=== PATIENT | female | born 2000 | race Caucasian/White ===

== ENCOUNTER → 2021-11-30 14:41 | Outpatient (BNVA) | payer OTHER, SELFPAY | PROVIDERS: Visit Provider Advanced Practice Midwife | DX: Z30.09 Encounter for other general counseling and advice on contraception (principal); Z30.011 Encounter for initial prescription of contraceptive pills | CPT/HCPCS: 99202 ==

== ENCOUNTER 2021-11-30 15:59 | Outpatient (REF) | payer OTHER, SELFPAY ==
[2021-11-30 16:12] LABS: MANUAL DIFF FLAG NO
[2021-11-30 16:25] LABS: Basophils Absolute Auto 0.1 X10*3/uL (0.0-0.2); Basophils Percent Auto 0.8 % (0-2); Eosinophils Absolute Auto 0.1 X10*3/uL (0.0-0.4); Hematocrit 40.5 % (37.0-47.0); Hemoglobin 13.5 g/dl (12.0-16.0); Imm Gran Abs Auto 0.03 X10*3/uL (0.00-0.03); Imm Gran Pct Auto 0.3 % (0.0-0.4); Lymphocytes Absolute Auto 3.1 X10*3/uL (1.2-4.9); Mean Corpuscular HGB Conc 33.3 g/dl (31.0-35.0); Mean Corpuscular Hemoglobin 30.4 pg (27.0-33.0); Mean Corpuscular Volume 91.2 fL (80.0-98.0); Mean Platelet Volume 9.2 fL (9.4-12.3); Monocytes Absolute Auto 0.9 X10*3/uL (0.1-1.2); Neutrophils Absolute Auto 6.5 x10*3/uL (2.0-8.3); Neutrophils Percent Auto 60.9 % (45-73); Platelet Count 384 X10*3/uL (160-400); Red Blood Count 4.44 X10*6/uL (4.20-5.50); Red Cell Distribution Width 11.8 % (11.0-16.0); White Blood Count 10.6 X10*3/uL (4.8-10.8)
[2021-11-30 16:50] LABS: Alanine Aminotransferase 14 U/L (0-31); Albumin Level 4.5 g/dL (3.5-5.0); Alkaline Phosphatase 62 U/L (39-117); Anion Gap 11 (12-20); Aspartate Amino Transferase 15 U/L (5-31); Bilirubin Total 0.4 mg/dL (0.0-1.0); Blood Urea Nitrogen 14 mg/dL (9-16); Calcium 9.5 mg/dL (8.4-10.2); Carbon Dioxide 26 mmol/L (22-29); Chloride 103 mmol/L (96-108); Estimated Glomerular Filt Rate > 60; Glucose Random 89 mg/dL (60-115); Potassium 4.4 mmol/L (3.3-5.1); Sodium 136 mmol/L (135-145); Total Protein 7.5 g/dL (6.5-8.0)
[2021-11-30 17:13] LABS: TSH reflex Free T4 0.69 uIU/mL (0.32-4.0); Vitamin D 25-OH Total 19.6 ng/mL (>30)
[2021-11-30 17:19] LABS: Folate 14.3 ng/mL (> or = 4.0); Vitamin B12 672 pg/mL (200-900)
== END 2021-11-30 16:00 | disposition home or self-care (01) ==
LOC: HO.LAB 15:59
PROVIDERS: PCP Nurse Practitioner Family; Visit Provider Nurse Practitioner Family
DX: Z13.29 Encounter for screening for other suspected endocrine disorder (principal); R53.83 Other fatigue; Z76.89 Persons encountering health services in other specified circumstances
CPT/HCPCS: 36415; 80053; 82306; 82607; 82746; 84443; 85025

== ENCOUNTER → 2021-12-31 15:07 | Outpatient (BNVA) | payer OTHER, SELFPAY | PROVIDERS: PCP Nurse Practitioner Family; Visit Provider Advanced Practice Midwife | DX: Z30.46 Encounter for surveillance of implantable subdermal contraceptive (principal); Z30.011 Encounter for initial prescription of contraceptive pills | CPT/HCPCS: 11982; 99212 ==

== ENCOUNTER 2022-01-15 14:27 | Outpatient (REF) | payer OTHER, SELFPAY ==
[2022-01-15 17:42] LABS: CT PCR NOT DETECTED (Not Detect.); NG PCR NOT DETECTED (Not Detect.)
[2022-01-16 11:04] LABS: BV Int Neg Control Negative (Negative); BV Int Pos Control Positive (Positive)
== END 2022-01-15 14:28 | disposition home or self-care (01) ==
LOC: HO.LAB 14:27
PROVIDERS: Visit Provider Advanced Practice Midwife
DX: Z01.419 Encounter for gynecological examination (general) (routine) without abnormal findings (principal); Z11.3 Encounter for screening for infections with a predominantly sexual mode of transmission
CPT/HCPCS: 87480; 87491; 87510; 87591; 87660; 88142

== ENCOUNTER 2022-12-25 12:10 | Outpatient (AMB) | payer OTHER, SELFPAY ==
--- OUTSIDE RECORDS SUMMARY | 2022-12-25 12:12 | XMS_ITS | Continuity of Care Document ---
Author Name Unknown Organization [facility] ter Address [address] [place] [id number] Care Team Providers Care Calender Runner Name Role Phone Not on Staff, PCP Primary Care Physician Unavail able [place] [facility] [place] - 10/31/[address] [address]- [facility] Encounter Diagnosis Anxiety(Final) - 10/31/19 Discharge Disposition: A-D/C Home Attending Physician: Zelalem Merritt MD Admitting Physician: Zelalem Merritt MD Referring Physician: Not on Staff, Referring MD Allergies, Adverse Reactions, Alerts Substance Reaction Severity Status NKA Active Medications Zofran 4 mg oral tablet 1 tablet = 4 mg, By Mouth, Every 8 hours, PRN as needed for nausea/vomiting, # 10 tablet, 0 Refills, Maintenance, 02/25/17 8:08:13, Tablet Start Date: 02/25/17 Status: Ordered Results Radiology Reports * Exam Date Time Procedure Performing Provider Status 10/31/19 1:41 AM Chest 2 Views Frontal and Lat Agueda Herrera (Verified) Notes: (Chest 2 Views Frontal and Lat) Reason For Exam: Shortness of Breath, Fever;Other: RESULT: Chest 2 Views Frontal and Lat Chest 2 Views Frontal and Lat Reason: Other:; Shortness of Breath, Fever; Clinical Question(s): Pneumonia; Hx of Present Illness:reports I can't breath onset 11p, reports drinking 4 beers since 9pm, denies trigger , no SI, feels fine now COMPARISON: 10/14/2016. FINDINGS: LINES AND TUBES: None. LUNGS AND PLEURA: Clear lungs. Normal pulmonary vascularity. No pleural effusion. No pneumothorax. HEART, MEDIASTINUM AND OSMAN: Heart is normal in size. Normal mediastinal and hilar contour. BONES AND SOFT TISSUES: No acute abnormality. IMPRESSION: No acute abnormality. WSN: [id number] Ordering Physician: Halie Bunn Dictated By: Luis Miguel Farfan MD Dictated Date/Time: 10/31/19 8:30 am Reviewed By: Luis Miguel Farfan MD Signed By: Luis Miguel Farfan MD Signed Date/Time: 10/31/19 8:30 am Transcribed By: KATIE Transcribed Date/Time: 10/31/19 8:30 am Vital Signs Most recent to oldest [Reference Range]: 1 2 Oxygen Saturation [94-100 %] 98 % (10/31/19 2:24 AM) 100 % (10/31/19 12:46 AM) Pulse Rate [55-90 bpm] 98 bpm *H* (10/31/19 2:24 AM) 100 bpm *H* (10/31/19 12:46 AM) Blood Pressure [90-138/55-84 mm Hg] 100/ 68mm Hg (10/31/19 2:24 AM) 104/62mm Hg (10/31/19 12:46 AM) Respiratory Rate [16-30 br/min] 17 br/mi n (10/31/19 2:24 AM) 15 br/min *L* (10/31/19 12:46 AM) Temperature [96.8-100.4 DegF] 97.9 DegF (10/31/19 2:24 AM) 97.8 DegF (10/31/19 12:46 AM) Mode of Delivery (Oxygen) Room air (10/31/19 2:24 AM) Room air (10/31/19 12:46 AM) Temperature Route Oral (10/31/19 2:24 AM) Oral (10/31/19 12:46 AM) Social History Social History Type Response Sex Female
[2022-12-25 12:14] VITALS: BP 100/82; PULSE 82; O2SAT 99; BMI 23.7
--- NOTE | 2022-12-25 12:14 | MHC.PC.OV ---
Vital Signs 12/25/22 12:14 Height 5 ft 6 in Weight 147 lb BMI 23.7 BP 100/82 Blood Pressure Location Lt brachial Position Sitting Pulse 82 Pulse Source Pulse Oximeter Temp Source Skin Pulse Oximetry (%) 99 Oxygen Delivery Method Room Air Intake Visit Reasons: pe Intake Note: Patient is here today for a physical. Gauger Delivery Required: No Allergies No Known Allergies [No Known Allergies*] Allergy (Verified 12/25/22 12:21) Medication List - Last Reconciled 12/25/22 by ELIZABETH Navarro norethindrone (contraceptive) 0.35 mg PO DAILY Tobacco use date assessed: 12/25/22 Dental Screening Dental Screen Date: 12/25/22 Did you have a dental visit in the last 12 months?: No Did you have a dental problem in the last 6 months where you did not have access to dental care?: No HPI pe HPI Details Patient is a 22-year-old female presents today for physical exam. Medical history significant for acne on back-would like to be seen by Dermatology-reports using [id number] acne wash with no improvement; vision changes-has referral to see ophthalmology for eye exam-will follow-up on this referral; anxiety. Patient did have normal Pap smear 01/2022 with [facility]. Patient reports history of tetanus vaccine in the last 10 years. PHQ-9 score 21, DAVE-7 score 18, patient denies SI or HI, she has referral to see counseling, did not hear from this referral-will follow-up on the referral. Patient is interested in pharmacological intervention for her anxiety and depression. She reports stress, feeling depressed, and feeling quickly agitated. Denies being on antidepressant medication in the past. She lives with her boyfriend. Patient denies shortness of breath or chest pain. In addition, patient reports nontender lump on her right abdomen for couple months now and would like this to be evaluated. Patient is a Urdu-speaking and Kelin was helping with interpretation. [facility] Medical History Encounter for Nexplanon removal Encounter to establish care Epigastric pain H/O migraine Nexplanon in place Surgical History No pertinent past surgical history Family History Maternal Grandfather Prostate CA Mother No problems noted. Father No problems noted. Social History Housing: House Patient Tobacco Use Status: Never used Tobacco e-Cigarette/Vaping Use: Never Used Second Hand Smoke Exposure: No service: No Current occupational status: employed Current occupational exposures/hazards: No Cognitive needs: No Hearing needs: No Vision needs: No Female Reproductive History Menstrual Age of Menarche: 12 Questionnaire PHQ-9 Over the last 2 weeks, how often have you been bothered by any of the following problems? 1. Little interest or pleasure in doing things: several days 2. Feeling down, depressed, or hopeless: nearly every day 3. Trouble falling or staying asleep, or sleeping too much: nearly every day 4. Feeling tired or having little energy: nearly every day 5. Poor appetite or overeating: nearly every day 6. Feeling bad about yourself - or that you are a failure or have let yourself or your family down: nearly every day 7. Trouble concentrating on things, such as reading the newspaper or watching television: more than half the days 8. Moving or speaking so slowly that other people could have noticed. Or the opposite - being so fidgety or restless that you have been moving around a lot more than usual: nearly every day 9. Thoughts that you would be better off or of hurting yourself in some way: not at all Total score: 21 Depression Screening Interpretation: Positive Depression Screening Follow-up: New Medication prescribed and Community Mental Health Worker F/U [id number] - PHQ-9 Billing: Yes Source: Developed by Drs. Beni Araiza, Rachana Shah, Rafy Vieira and colleagues, with an educational ricky from [employer]. Thrive Questionnaire Date Thrive assessed: 12/25/22 I am a: Patient What is your living situation today?: I have a steady place to live Within the past 12 months, did the food you bought not last and you didn't have the money to get more?: Never true Within the past 12 months, did you worry whether your food would run out before you got money to buy more?: Never true Do you have trouble paying for medicines?: No Do you have trouble getting transportation to medical appointments?: No Do you have trouble paying your heating and electricity bill?: No Do you have trouble taking care of your child, family member or friend?: No Do you have trouble with day-to-day activities such as bathing, preparing meals, shopping, managing finances, etc.?: No Are you currently unemployed and looking for a job?: No Are you interested in more education?: No Currently or been in a relationship where the following occur: no concerns reported AUDIT C Alcohol Use Questionnaire (AUDIT-C) 1. How often do you have a drink containing alcohol?: Monthly or less 2. How many drinks containing alcohol do you have on a typical day when you are drinking?: 1 or 2 3. How often do you have six or more drinks on one occasion?: Never Total Score: 1 Score Reviewed/Action Taken: No DAVE-7 AMB Questionnaire DAVE-7 Date DAVE - 7 assessed: 12/25/22 Feeling nervous, anxious, or on edge: 3 = Nearly every day Not being able to stop or control worryin = Nearly every day Worrying too much about different things: 3 = Nearly every day Trouble relaxin = Nearly every day Being so restless that it is hard to sit still: 3 = Nearly every day Becoming easily annoyed or irritable: 3 = Nearly every day Feeling afraid as if something awful might happen: 0 = Not at all (pt states i dont know ) Total DAVE-7 score (0-4 normal; 5-9 mild; 10-14 moderate; 15-21 severe): 18 Source: Developed by Drs. Beni Araiza, Rachana Shah, Rafy Vieira and colleagues, with an educational ricky from [employer]. DAVE-7 Assessment Billing DAVE-7 Assessment Tool: DAVE-7 Assessment 87742 Review of Systems Const Denies body aches, Denies chills, Denies fever(s) and Denies headache(s) Eyes Denies change in vision ENT Denies dizziness, Denies otalgia, Denies headache(s), Denies nasal discharge, Denies sinus pain and Denies sore throat Card Denies chest pain, Denies edema, Denies lightheadedness and Denies dyspnea Resp Denies cough and Denies dyspnea GI Denies abdominal pain, Denies constipation, Denies diarrhea, Denies nausea and Denies vomiting Denies dysuria Musc Denies myalgias, Denies arthralgias and Denies joint swelling Skin/Breast Reports as per HPI and Denies rash Neuro Denies dizziness and Denies headache(s) Physical exam (Primary Care) Vital Signs: Last Vital Signs Pulse 82 12/25/22 12:14 BP 100/82 12/25/22 12:14 Pulse Ox 99 12/25/22 12:14 Oxygen Delivery Method Room Air 12/25/22 12:14 BMI result Body Mass Index 23.7 Tobacco/Smoking Status: Tobacco use Status Tobacco use date assessed 12/25/22 12/25/22 12:19 Patient Tobacco Use Status Never used Tobacco 12/25/22 12:19 e-Cigarette/Vaping Use Never Used 12/25/22 12:19 PHQ-9: PHQ-9 Score PHQ-9: Total score 21 12/25/22 12:19 Depression Screening Interpretation: Positive Depression Screening Follow-up: New Medication prescribed and Community Mental Health Worker F/U Thrive Assessment: Date of Thrive Assessment Date Thrive assessed 12/25/22 12/25/22 12:19 Currently or been in a relationship where the following occur: no concerns reported Const General: cooperative and no acute distress Orientation/consciousness: patient oriented x3 HENMT Head: Yes normocephalic and Yes atraumatic Ears: TM's normal bilaterally Face and sinus: Yes sinuses nontender Mouth: oropharynx normal and moist mucous membranes Throat: Yes posterior oropharynx normal Eyes General: appearance normal, both eyes and all related structures Pupils: Equal, round and reactive pupils present EOM: EOMs intact bilaterally Neck Neck: Yes normal visual inspection, Yes full ROM and Yes no lymphadenopathy Thyroid: Thyroid normal Resp Effort & Inspection: normal respiratory effort and able to speak in complete sentences Auscultation: clear to auscultation bilaterally, no crackles, no rales, no rhonchi and no wheezes Cardio Rate: regular rate Rhythm: regular rhythm Heart sounds: S1 normal heart sound present, S2 normal heart sound present and no murmurs GI Palpation (GI): Soft to palpation, not firm, nontender, no guarding, not rigid and no hepatosplenomegaly Auscultation: normal bowel sounds General: No CVA tenderness Back/Spine/Pelvis Back: No CVA tenderness Skin Other: Moderate acne noted to upper back, no signs of infection noted Full body images: 1. Right lower abdomen lateral aspect nontender lump about 1cm in diameter, skin is intact, no signs of infection noted Neuro General: patient oriented x3 Cranial nerves: Yes Equal, round and reactive pupils present Gait exam (Neuro): Normal gait present Extrem General: Yes full ROM and No edema Assessment and Plan Assessment & Plan (1) Lump of skin: Code(s): R22.9 - Localized swelling, mass and lump, unspecified Plan: Right lower abdomen lateral aspect nontender lump about 1cm in diameter, skin is intact, no signs of infection noted Will obtain ultrasound, will notify of the results (2) Depression: Code(s): F32.A - Depression, unspecified Qualifiers: Depression Type: other depression Qualified Code(s): F32.89 - Other specified depressive episodes Plan: Start sertraline 25 mg daily-possible adverse reactions reviewed with the patient and when to notify provider, if SI stop medication and advised ED Will follow-up on counseling referral Placed psychiatry referral Patient provided with crisis phone number Follow-up in 6 weeks or sooner as needed (3) Generalized anxiety disorder: Code(s): F41.1 - Generalized anxiety disorder Plan: Same as above (4) Acne: Code(s): L70.9 - Acne, unspecified Plan: Dermatology referral for an evaluation and treatment-patient reports using iono-elw-rwauiab acne washes with no improvement (5) Adult general medical exam: Code(s): Z00.00 - Encounter for general adult medical examination without abnormal findings Plan: Repeat in 1 year Blood work ordered Orders: Orders Vitamin B12 and Folate Today F32.A - Depression, unspecified Comprehensive Met. Panel Today F32.A - Depression, unspecified TSH reflex Free T4 Today F32.A - Depression, unspecified Vitamin D 25-OH Total Today F32.A - Depression, unspecified Complete Blood Count Auto Diff Today F32.A - Depression, unspecified US extremity nonvascular Today R22.9 - Localized swelling, mass and lump, unspecified Referrals Psychiatry Referral F32.A - Depression, unspecified, F41.1 - Generalized anxiety disorder Dermatology Referral L70.9 - Acne, unspecified Medications: New sertraline 25 mg PO DAILY 30 tabs 2RF F32.A - Depression, unspecified, F41.1 - Generalized anxiety disorder Coding Level of Care Code Est Pt Prev Care 18-39y(79306) Diagnoses Lump of skin R22.9 Depression F32.89 Depression Type: other depression Generalized anxiety disorder F41.1 Acne L70.9 Adult general medical exam Z00.00 Additional Codes DAVE-7 Assessment Billing - DAVE-7 Assessment Tool: DAVE-7 Assessment 42507 ([id number])
== END 2022-12-25 12:41 | disposition home or self-care (01) ==
LOC: HO.HMGH 12:11
PROVIDERS: PCP Nurse Practitioner Family; Visit Provider Nurse Practitioner Family
DX: Z00.00 Encounter for general adult medical examination without abnormal findings (principal); R22.9 Localized swelling, mass and lump, unspecified; F32.89 Other specified depressive episodes; F41.1 Generalized anxiety disorder; L70.9 Acne, unspecified
CPT/HCPCS: 96127; 99395

== ENCOUNTER 2023-01-10 15:39 | Outpatient (REF) | payer OTHER, SELFPAY ==
--- NOTE | ~2023-01-10 | US_ITS ---
EXAMINATION: US PELVIS, LIMITED/FOLLOW UP CLINICAL INFORMATION: Localized swelling, mass and lump, unspecified. Right abdomen nontender lump, please evaluate, thank you. COMPARISON: None available. TECHNIQUE: The patient directed the restaurant managing partner to the area of palpable concern. Targeted ultrasound was performed. FINDINGS: At the area of palpable concern there is a 9 mm simple cystic cutaneous lesion measuring 2 mm from the skin surface. A similar 4 mm simple cystic cutaneous lesion measuring 2 mm from the skin surface is seen more laterally. These do not display suspicious/aggressive features. US/US pelvic limited IMPRESSION: Small simple cutaneous cystic lesions at the area of palpable concern.
== END 2023-01-10 15:40 | disposition home or self-care (01) ==
LOC: HO.HMGCX 15:39
PROVIDERS: PCP Nurse Practitioner Family; Visit Provider Nurse Practitioner Family
DX: R22.9 Localized swelling, mass and lump, unspecified (principal)
CPT/HCPCS: 76857

== ENCOUNTER 2023-01-31 15:28 | Outpatient (REF) | payer OTHER, SELFPAY ==
[2023-01-31 15:36] LABS: MANUAL DIFF FLAG NO
[2023-01-31 16:14] LABS: Basophils Absolute Auto 0.1 X10*3/uL (0.0-0.2); Basophils Percent Auto 1.1 % (0-2); Eosinophils Absolute Auto 0.2 X10*3/uL (0.0-0.4); Hematocrit 41.1 % (37.0-47.0); Hemoglobin 13.5 g/dl (12.0-16.0); Imm Gran Abs Auto 0.04 X10*3/uL (0.00-0.03); Imm Gran Pct Auto 0.4 % (0.0-0.4); Lymphocytes Absolute Auto 3.4 X10*3/uL (1.2-4.9); Lymphocytes Percent Auto 30.5 % (20-40); Mean Corpuscular HGB Conc 32.8 g/dl (31.0-35.0); Mean Corpuscular Hemoglobin 30.8 pg (27.0-33.0); Mean Corpuscular Volume 93.6 fL (80.0-98.0); Mean Platelet Volume 9.4 fL (9.4-12.3); Monocytes Absolute Auto 0.8 X10*3/uL (0.1-1.2); Monocytes Percent Auto 7.3 % (2-11); Neutrophils Absolute Auto 6.6 x10*3/uL (2.0-8.3); Neutrophils Percent Auto 58.7 % (45-73); Platelet Count 422 X10*3/uL (160-400); Red Blood Count 4.39 X10*6/uL (4.20-5.50); Red Cell Distribution Width 12.5 % (11.0-16.0); White Blood Count 11.2 X10*3/uL (4.8-10.8)
[2023-01-31 17:10] LABS: Alanine Aminotransferase 9 U/L (0-31); Albumin Level 4.5 g/dL (3.5-5.0); Alkaline Phosphatase 48 U/L (39-117); Anion Gap 8 (12-20); Aspartate Amino Transferase 13 U/L (5-31); Bilirubin Total 0.4 mg/dL (0.0-1.0); Blood Urea Nitrogen 14 mg/dL (9-16); Calcium 9.4 mg/dL (8.4-10.2); Carbon Dioxide 26 mmol/L (22-29); Chloride 109 mmol/L (96-108); Estimated Glomerular Filt Rate > 60; Glucose Random 73 mg/dL (60-115); Potassium 3.7 mmol/L (3.3-5.1); Sodium 139 mmol/L (135-145); Total Protein 7.6 g/dL (6.5-8.0)
[2023-01-31 17:25] LABS: TSH reflex Free T4 0.55 uIU/mL (0.32-4.0); Vitamin D 25-OH Total 15.2 ng/mL (>30)
[2023-01-31 17:40] LABS: Folate 8.9 ng/mL (> or = 4.0); Vitamin B12 1155 pg/mL (200-900)
== END 2023-01-31 15:29 | disposition home or self-care (01) ==
LOC: HO.LAB 15:28
PROVIDERS: PCP Nurse Practitioner Family; Visit Provider Nurse Practitioner Family
DX: F32.A Depression, unspecified (principal)
CPT/HCPCS: 36415; 80053; 82306; 82607; 82746; 84443; 85025

== ENCOUNTER 2023-02-06 10:58 | Outpatient (AMB) | payer OTHER, SELFPAY ==
[2023-02-06 11:20] VITALS: BP 104/66; PULSE 75; O2SAT 99; BMI 23.6
--- NOTE | 2023-02-06 11:20 | MHC.PC.OV ---
Vital Signs 02/06/23 11:20 Height 5 ft 6 in Weight 146 lb 8 oz BMI 23.6 BP 104/66 Blood Pressure Location Lt brachial Position Sitting Pulse 75 Pulse Source Pulse Oximeter Pulse Oximetry (%) 99 Oxygen Delivery Method Room Air Intake Visit Reasons: F/u depression, anxiety Intake Note: Pt is here for lab results. [employer] Required: Yes [employer] Language: Sammarinese Accompanied by: Self / Same As Patient Allergies No Known Allergies [No Known Allergies*] Allergy (Verified 02/06/23 11:44) Medication List - Last Reconciled 02/06/23 by ELIZABETH Navarro norethindrone (contraceptive) 0.35 mg PO DAILY sertraline 25 mg PO DAILY Tobacco use date assessed: 12/25/22 Dental Screening Dental Screen Date: 02/06/23 Did you have a dental visit in the last 12 months?: No Did you have a dental problem in the last 6 months where you did not have access to dental care?: No Was dental information given to patient?: Patient has dentist HPI F/u depression, anxiety HPI Details Patient is a 22-year-old female who presents today to follow-up on her labs and mental health. At the last office visit 12/2022 patient was started on sertraline 25 mg daily for anxiety and depression, she reports that medications slightly works, wondering if dose can be slightly increased. Recent blood work results from 01/2023 were reviewed with the patient, vitamin-D low, will replace. Patient is a Sammarinese-speaking and OCTAVIANO Mcneal was helping with interpretation. Patient has referral for counseling-will follow-up on this. [facility] Medical History Encounter for Nexplanon removal Encounter to establish care Epigastric pain H/O migraine Nexplanon in place Surgical History No pertinent past surgical history Family History Maternal Grandfather Prostate CA Mother No problems noted. Father No problems noted. Social History Housing: House Patient Tobacco Use Status: Never used Tobacco e-Cigarette/Vaping Use: Never Used Second Hand Smoke Exposure: No service: No Current occupational status: employed Current occupational exposures/hazards: No Cognitive needs: No Hearing needs: No Vision needs: No Female Reproductive History Menstrual Age of Menarche: 12 Questionnaire Thrive Questionnaire Date Thrive assessed: 12/25/22 DAVE-7 AMB Questionnaire DAVE-7 Date DAVE - 7 assessed: 12/25/22 Source: Developed by Drs. Beni Araiza, Rachana Shah, Rafy Vieira and colleagues, with an educational ricky from [employer]. Review of Systems Const Denies body aches, Denies chills, Denies fever(s) and Denies headache(s) Eyes Denies change in vision ENT Denies dizziness, Denies otalgia, Denies headache(s), Denies nasal discharge, Denies sinus pain and Denies sore throat Card Denies chest pain, Denies edema, Denies lightheadedness and Denies dyspnea Resp Denies cough and Denies dyspnea GI Denies abdominal pain Denies dysuria Musc Denies myalgias Skin/Breast Details: Acne Denies rash Neuro Denies dizziness and Denies headache(s) Physical exam (Primary Care) Vital Signs: Last Vital Signs Pulse 75 02/06/23 11:20 BP 104/66 02/06/23 11:20 Pulse Ox 99 02/06/23 11:20 Oxygen Delivery Method Room Air 02/06/23 11:20 BMI result Body Mass Index 23.6 Tobacco/Smoking Status: Tobacco use Status Tobacco use date assessed 12/25/22 02/06/23 11:25 Patient Tobacco Use Status Never used Tobacco 02/06/23 11:25 e-Cigarette/Vaping Use Never Used 02/06/23 11:25 Thrive Assessment: Date of Thrive Assessment Date Thrive assessed 12/25/22 02/06/23 11:25 Const General: cooperative and no acute distress Orientation/consciousness: patient oriented x3 HENMT Head: Yes normocephalic and Yes atraumatic Eyes General: appearance normal, both eyes and all related structures Neck Neck: Yes normal visual inspection and Yes full ROM Resp Effort & Inspection: normal respiratory effort and able to speak in complete sentences Auscultation: clear to auscultation bilaterally, no crackles, no rales, no rhonchi and no wheezes Cardio Rate: regular rate Rhythm: regular rhythm Heart sounds: S1 normal heart sound present, S2 normal heart sound present and no murmurs GI Auscultation: normal bowel sounds Skin Other: Moderate acne noted to face Neuro General: patient oriented x3 Gait exam (Neuro): Normal gait present Extrem General: Yes full ROM and No edema Assessment and Plan Assessment & Plan (1) Depression: Code(s): F32.A - Depression, unspecified Qualifiers: Depression Type: other depression Qualified Code(s): F32.89 - Other specified depressive episodes Plan: Increase sertraline to 50 mg daily Will follow-up on psychiatry and counseling referral Follow-up in 6 months or sooner as needed (2) Generalized anxiety disorder: Code(s): F41.1 - Generalized anxiety disorder Plan: Same as above (3) Acne: Code(s): L70.9 - Acne, unspecified Plan: Will follow-up on dermatology referral (4) Low vitamin D level: Code(s): R7.89 - Other specified abnormal findings of blood chemistry Plan: Start vitamin D3 50 mcg daily Recheck level in 3 months Orders: Orders Vitamin D 25-OH Total 3 Months R7.89 - Other specified abnormal findings of blood chemistry Medications: New sertraline 50 mg PO DAILY 30 tabs 2RF F32.A - Depression, unspecified, F41.1 - Generalized anxiety disorder cholecalciferol (vitamin D3) 50 mcg PO DAILY 90 tabs 0RF R79.89 - Other specified abnormal findings of blood chemistry Discontinued sertraline Discontinued Reason: Doctor's Order 25 mg PO DAILY 30 tabs 2RF F32.A - Depression, unspecified, F41.1 - Generalized anxiety disorder Coding Level of Care Code Est Pt Level 3 (92142) Diagnoses Depression F3. Depression Type: other depression Generalized anxiety disorder F41.1 Acne L70.9 Low vitamin D level R79.89
== END 2023-02-06 13:02 | disposition home or self-care (01) ==
PROVIDERS: PCP Nurse Practitioner Family; Visit Provider Nurse Practitioner Family
DX: F32.89 Other specified depressive episodes (principal); F41.1 Generalized anxiety disorder; L70.9 Acne, unspecified; R79.89 Other specified abnormal findings of blood chemistry
CPT/HCPCS: 99213

== ENCOUNTER 2023-04-08 15:53 | Outpatient (REF) | payer OTHER, SELFPAY ==
[2023-04-08 18:43] LABS: HCG Quantitative 36658 mIU/mL
== END 2023-04-08 15:54 | disposition home or self-care (01) ==
LOC: HO.LAB 15:53
PROVIDERS: PCP Nurse Practitioner Family; Visit Provider Advanced Practice Midwife
DX: N91.2 Amenorrhea, unspecified (principal)
CPT/HCPCS: 36415; 84702

== ENCOUNTER 2023-04-16 15:02 | Outpatient (REF) | payer OTHER, SELFPAY ==
--- NOTE | ~2023-04-16 | US_ITS ---
EXAMINATION: US OBSTETRICAL ULTRASOUND CLINICAL INFORMATION: Irregular menstruation unspecified COMPARISON: Ultrasound pelvis limited from 01/10/2023 LMP: Unknown 02/23/2023. Gestational age by maternal dates is 7 weeks 3 days. Estimated date of delivery by maternal dates is 11/29/2022. TECHNIQUE: Transabdominal and transvaginal imaging of the pelvis. FINDINGS: There is a single intrauterine gestational sac with visible yolk sac, embryo/fetus, and cardiac activity. There is no significant subchorionic hemorrhage or hematoma. HR: 143 beats per minute. CRL (crown rump length): 1.0 cm (7 weeks 1 day +/- 4 days). NIALL (estimated date of delivery): 12/01/2022 +/- 4 days. MATERNAL ADNEXA: The right maternal ovary measures 3.0 x 0.9 x 1.6 cm. The left maternal ovary measures 3.5 x 2.1 x 1.6 cm. A 2.0 x 1.8 x 1.8 cm corpus luteal cyst is noted. There is no significant maternal adnexal mass. No maternal pelvic ascites. US/US OB <= 14 weeks fetus IMPRESSION: 1. Single intrauterine gestation with ultrasound gestational age of 7 weeks 1 day +/- 4 days. 2. Estimated date of delivery is 12/01/2022 +/- 4 days. 3. No maternal adnexal mass or pelvic ascites.
== END 2023-04-16 15:03 | disposition home or self-care (01) ==
LOC: HO.US 15:02
PROVIDERS: PCP Nurse Practitioner Family; Visit Provider Advanced Practice Midwife
DX: Z34.91 Encounter for supervision of normal pregnancy, unspecified, first trimester (principal); Z3A.01 Less than 8 weeks gestation of pregnancy
CPT/HCPCS: 76801